=== PATIENT | female | born 1945 | race Caucasian/White ===

== ENCOUNTER → 2018-04-12 13:00 | Outpatient (CLI) | payer MEDICARE, OTHER, SELFPAY ==
--- NOTE | 2018-04-12 13:07 | CT_ITS ---
STUDY: CT LEFT KNEE WITHOUT CONTRAST REASON FOR EXAM: Female, 73 years old. Severe knee pain, unable to weight-bear, status post total knee replacement RADIATION DOSAGE (If Supplied By Facility): CTDIvol = ( 17.36 ) mGy, DLP = ( 601.15 ) mGycm TECHNIQUE: Transaxial CT imaging of the knee was performed. Coronal and sagittal images were reformatted. COMPARISON: None. FINDINGS: There is fairly significant artifact from the orthopedic hardware. The patella appears subluxed laterally. There may be a suprapatellar effusion. No definite fracture. The promotions representative view demonstrates bilateral total knee replacements. CT/Extremity Lower without Contra IMPRESSION: Limited study due to beam hardening artifact from the total knee replacement. The patella appears laterally subluxed. No definite acute fracture. Suprapatellar effusion. Electronically Signed: Hiram Wilkinson DO at 14:24 EDT Tel , Service support ,
== END ==
PROVIDERS: Visit Provider Specialist
DX: Z96.652 Presence of left artificial knee joint (principal)
CPT/HCPCS: 73700

== ENCOUNTER → 2018-04-27 12:49 | Outpatient (CLI) | payer MEDICARE, OTHER, SELFPAY ==
[2018-04-27 12:55] LABS: Pathologist Comment May follow
[2018-04-27 13:34] LABS: RBC /Synovial Fluid 0.009 10^6/uL (0); Synovial Fld Mononuclear WBC % 60.9 %; Synovial Fld Polynuclear WBC # 0.116 10^3/ul; Synovial Fld Polynuclear WBC % 39.1 %
[2018-04-27 13:57] LABS: AUTO B FLUID DILUENT BKGD CT WBC <0.1 RBC <0.01 (W<.1,R<.01); Appearance /Synovial Fluid Sl Cl (CLEAR); Color / Synovial Fluid Yellow (Pale Yellow); Source / Synovial Fluid LEFT KNEE; Source- Body Fluid SYNOVIAL
[2018-04-27 14:57] LABS: Lymph 50 %; Monocyte /Synovial Fluid 10 %; Neutrophil 40 % (0-25)
[2018-04-27 14:58] LABS: Body Fluid QC Type(s) BF1Q,BF2Q
[2018-04-30 15:05] LABS: Pathologist Review Reviewed
== END ==
PROVIDERS: Visit Provider Specialist
DX: M25.462 Effusion, left knee (principal); Z96.652 Presence of left artificial knee joint
CPT/HCPCS: 87015; 87070; 87075; 87101; 87116; 87205; 87206; 89050; 89051; 89060